=== PATIENT | male | born 1960 | race Caucasian/White ===

== ENCOUNTER 2018-01-15 22:16 | Inpatient (IN) | payer OTHER ==
[2018-01-15] MEDS: LORAZEPAM 2 MG INJ IV (22:39)
[2018-01-15] MEDS: FUROSEMIDE 20 MG INJ IV (22:40)
[2018-01-15] MEDS: morphine 4 MG/ML VIAL IV (22:40)
[2018-01-15] MEDS: ONDANSETRON 4 MG INJ IV (22:40)
[2018-01-15] MEDS: ASPIRIN 325 MG TAB PO (22:41)
[2018-01-15] MEDS: NITROGLYCERIN 50 MG/D5W (PMX) 250 ML IV (22:42)
[2018-01-15 22:46] LABS: ADD MAN DIFF? NO
[2018-01-15 22:48] LABS: BASOPHIL # 0.1 10^3/ul (0.0-0.1); BASOPHILS % 0.6 % (0.0-2.0); EOSINOPHILS # 0.4 10^3/ul (0.0-0.5); EOSINOPHILS % 2.3 % (0.0-7.0); HEMATOCRIT 32.6 % (42.0-52.0); LYMPHOCYTES # 4.8 10^3/ul (0.8-2.9); MEAN CORPUSCULAR HEMOGLOBIN 29.2 pg (29.0-33.0); MEAN CORPUSCULAR HGB CONC 30.7 g/dl (32.0-37.0); MEAN PLATELET VOLUME 9.7 fl (7.4-10.4); MONOCYTE # 1.3 10^3/ul (0.3-0.9); MONOCYTES % 7.2 % (0.0-11.0); NEUTROPHIL # 11.1 10^3/ul (1.6-7.5); NEUTROPHILS % 62.4 % (39.0-77.0); PLATELET COUNT 391 10^3/UL (140-415); RED BLOOD COUNT 3.43 10^6/ul (4.70-6.10); RED CELL DISTRIBUTION WIDTH 13.6 % (11.5-14.5)
[2018-01-15 22:48] LABS: WHITE BLOOD COUNT 17.7 10^3/ul (4.8-10.8)
[2018-01-15 23:06] LABS: ALANINE AMINOTRANSFERASE 32 IU/L (13-69); ALBUMIN 3.9 g/dl (3.3-4.9); ALBUMIN/GLOBULIN RATIO 1.34; ALKALINE PHOSPHATASE 75 IU/L (42-121); ANION GAP 23 (8-16); ASPARTATE AMINO TRANSFERASE 25 IU/L (15-46); BILIRUBIN,INDIRECT 0.2 mg/dl (0-1.1); BILIRUBIN,TOTAL 0.2 mg/dl (0.2-1.3); BLOOD UREA NITROGEN 31 mg/dl (7-20); CALCIUM 8.4 mg/dl (8.4-10.2); CARBON DIOXIDE 16 mmol/L (21-31); CHLORIDE 108 mmol/L (97-110); CREATININE 1.67 mg/dl (0.61-1.24); GLUCOSE 284 mg/dl (70-220); SODIUM 142 mmol/L (135-144); TOTAL PROTEIN 6.8 g/dl (6.1-8.1)
[2018-01-15 23:07] LABS: INR 1.04; PROTIME 13.7 Sec (11.9-14.9); PT RATIO 1.1
[2018-01-15 23:08] LABS: PARTIAL THROMBOPLASTIN TIME 32.8 Sec (25.0-35.0)
[2018-01-15 23:18] LABS: B-TYPE NATRIURETIC PEPTIDE 16200 PG/ML (0-125)
[2018-01-15 23:22] LABS: TROPONIN-I 0.407 ng/ml (0.000-0.120)
[2018-01-16] MEDS: LORAZEPAM 2 MG INJ IV (00:19)
[2018-01-16] MEDS ORDERED: ONDANSETRON 4 MG INJ IV (00:30)
[2018-01-16] MEDS ORDERED: NITROGLYCERIN (SL) 0.4 MG TAB SL (00:30)
[2018-01-16] MEDS ORDERED: NACL 0.9% 3 ML SYG IV (00:30)
[2018-01-16] MEDS ORDERED: ACETAMINOPHEN 325 MG TAB PO (00:30)
[2018-01-16 01:34] LABS: AADO2 Arterial 123.9 mmHg (7.0-24.0); Arterial Base Excess -6.4 mmol/L (-3.0-3); Arterial COHb 0.4 % (0.0-3.0); Arterial Fraction of Oxyhgb 88.6 % (93.0-99.0); Arterial HCO3 19.8 mmol/L (22.0-26.0); Arterial MetHb 0.1 % (0.0-1.5); Arterial Total Hemglobin 10.7 g/dl (12.0-18.0); Arterial pCO2 42.1 mmhg (35-45); MODE NASAL CANNULA; Site Left Radial
[2018-01-16] MEDS: ALBUTEROL/IPRATROPIUM (NEB) 3 ML AMP HHN ×2 (03:56→19:53)
[2018-01-16] MEDS: BUMETANIDE 1 MG INJ IV (04:09)
[2018-01-16 05:38] LABS: AADO2 Arterial 122.2 mmHg (7.0-24.0); Allen Test ACCEPTAB; Arterial Base Excess -5.2 mmol/L (-3.0-3); Arterial Blood Gas Oxygen Sat 97.7 mmHG (95.0-98.0); Arterial COHb 0.1 % (0.0-3.0); Arterial Fraction of Oxyhgb 97.4 % (93.0-99.0); Arterial HCO3 20.3 mmol/L (22.0-26.0); Arterial MetHb 0.2 % (0.0-1.5); Arterial Total Hemglobin 10.5 g/dl (12.0-18.0); Arterial pCO2 39.6 mmhg (35-45); Blood Gas IEPAP 18/5; MODE MASK - BIPAP; Site Left Radial
[2018-01-16 07:41] LABS: ADD MAN DIFF? NO
[2018-01-16 07:54] LABS: WHITE BLOOD COUNT 13.7 10^3/ul (4.8-10.8)
[2018-01-16 07:54] LABS: BASOPHIL # 0.1 10^3/ul (0.0-0.1); BASOPHILS % 0.4 % (0.0-2.0); EOSINOPHILS # 0.1 10^3/ul (0.0-0.5); EOSINOPHILS % 0.7 % (0.0-7.0); HEMATOCRIT 31.8 % (42.0-52.0); HEMOGLOBIN 9.7 g/dl (14.0-18.0); LYMPHOCYTES # 2.1 10^3/ul (0.8-2.9); LYMPHOCYTES % 15.1 % (15.0-51.0); MEAN CORPUSCULAR HEMOGLOBIN 28.6 pg (29.0-33.0); MEAN CORPUSCULAR HGB CONC 30.5 g/dl (32.0-37.0); MEAN CORPUSCULAR VOLUME 93.8 fl (82.0-101.0); MEAN PLATELET VOLUME 9.6 fl (7.4-10.4); MONOCYTE # 1.1 10^3/ul (0.3-0.9); MONOCYTES % 7.7 % (0.0-11.0); NEUTROPHIL # 10.4 10^3/ul (1.6-7.5); NEUTROPHILS % 75.7 % (39.0-77.0); PLATELET COUNT 334 10^3/UL (140-415); RED BLOOD COUNT 3.39 10^6/ul (4.70-6.10); RED CELL DISTRIBUTION WIDTH 13.6 % (11.5-14.5)
[2018-01-16 08:15] LABS: CREATINE KINASE 94 IU/L (23-200)
[2018-01-16 08:23] LABS: CK INDEX 3.6
[2018-01-16] MEDS: HALOPERIDOL 5 MG INJ IM (08:23)
[2018-01-16] MEDS: DIPHENHYDRAMINE 50 MG INJ IV (08:23)
[2018-01-16 08:25] LABS: CK-MB 3.42 ng/ml (0.0-2.4); TROPONIN-I 0.456 ng/ml (0.000-0.120)
[2018-01-16] MEDS: FUROSEMIDE 20 MG INJ IV ×2 (08:30→21:47)
[2018-01-16] MEDS: METOPROLOL 25 MG TAB PO (08:31)
[2018-01-16] MEDS: ASPIRIN (EC) 81 MG TAB PO (08:31)
[2018-01-16 08:34] LABS: HEMOGLOBIN A1C 6.6 % (0-5.9)
[2018-01-16 08:38] LABS: ALANINE AMINOTRANSFERASE 36 IU/L (13-69); ALBUMIN 3.4 g/dl (3.3-4.9); ALBUMIN/GLOBULIN RATIO 1.25; ALKALINE PHOSPHATASE 60 IU/L (42-121); ANION GAP 18 (8-16); ASPARTATE AMINO TRANSFERASE 26 IU/L (15-46); BILIRUBIN,INDIRECT 0.2 mg/dl (0-1.1); BILIRUBIN,TOTAL 0.2 mg/dl (0.2-1.3); BLOOD UREA NITROGEN 37 mg/dl (7-20); CALCIUM 8.1 mg/dl (8.4-10.2); CARBON DIOXIDE 21 mmol/L (21-31); CHLORIDE 109 mmol/L (97-110); CHOL/HDL RATIO 3.7 RATIO; CHOLESTEROL 112 mg/dl (100-200); CREATININE 1.82 mg/dl (0.61-1.24); GLUCOSE 160 mg/dl (70-220); HDL CHOLESTEROL 30 mg/dl (28-71); LDL CHOLESTEROL,CALCULATED 55 mg/dl; MAGNESIUM 1.4 mg/dl (1.7-2.5); POTASSIUM 5.9 mmol/L (3.5-5.1); SODIUM 142 mmol/L (135-144); TOTAL PROTEIN 6.1 g/dl (6.1-8.1); TRIGLYCERIDES 137 mg/dl (0-149)
[2018-01-16] MEDS: ENOXAPARIN 100 MG/ML SYG SC (08:52)
[2018-01-16] MEDS ORDERED: HEPARIN 5,000 UNIT/0.5 ML VIAL SC (09:00)
[2018-01-16 09:08] LABS: THYROID STIMULATING HORMONE 0.892 MIU/L (0.465-4.680)
[2018-01-16] MEDS: MAGNESIUM SULFATE 1 GM/D5W 100 ML IVPB (11:39)
[2018-01-16 12:45] LABS: SODIUM,URINE RANDOM 121 mmol/L (30-90)
[2018-01-16 12:45] LABS: CREATININE,URINE RANDOM 38.67 mg/dl (20-370)
[2018-01-16 12:55] LABS: CREATINE KINASE 116 IU/L (23-200)
[2018-01-16 13:07] LABS: CK INDEX 2.8
[2018-01-16 13:09] LABS: TROPONIN-I 0.424 ng/ml (0.000-0.120)
[2018-01-16 15:52] LABS: ANION GAP 16 (8-16); BLOOD UREA NITROGEN 36 mg/dl (7-20); CALCIUM 8.4 mg/dl (8.4-10.2); CARBON DIOXIDE 22 mmol/L (21-31); CHLORIDE 109 mmol/L (97-110); CREATININE 1.83 mg/dl (0.61-1.24); GLUCOSE 164 mg/dl (70-220); POTASSIUM 5.2 mmol/L (3.5-5.1); SODIUM 142 mmol/L (135-144)
[2018-01-16] MEDS: INSULIN ASPART [NOVOLOG] 3 ML PEN SC ×2 (17:57→22:04)
[2018-01-16] MEDS ORDERED: GLUCOSE GEL 15 GRAM TUBE BUCCAL (18:00)
[2018-01-16] MEDS ORDERED: GLUCAGON 1 MG INJ IM (18:00)
[2018-01-16] MEDS ORDERED: GLUCOSE GEL 15 GRAM TUBE PO ×2 (18:00)
[2018-01-16] MEDS ORDERED: DEXTROSE 50% 50 ML SYRINGE IV ×2 (18:00)
[2018-01-16] MEDS ORDERED: hydrALAzine 20 MG INJ IV (20:00)
[2018-01-16] MEDS ORDERED: INSULIN GLARGINE HUM REC ANLOG SC (21:00)
[2018-01-16] MEDS ORDERED: [UNRECOGNIZED DRUG - OTHER] SC (21:00)
[2018-01-16] MEDS: ISOSORBIDE DINITRATE 10 MG TAB PO (21:48)
[2018-01-16] MEDS: INSULIN GLARGINE [LANtus] 3 ML PEN SC (23:46)
[2018-01-17] MEDS: ALBUTEROL/IPRATROPIUM (NEB) 3 ML AMP HHN (00:41)
[2018-01-17] MEDS: ACCU-CHEK XX (02:00)
[2018-01-17] MEDS: ASPIRIN (EC) 81 MG TAB PO (07:52)
[2018-01-17] MEDS: FUROSEMIDE 20 MG INJ IV ×2 (07:52→20:49)
[2018-01-17] MEDS: ISOSORBIDE DINITRATE 10 MG TAB PO ×3 (07:53→20:44)
[2018-01-17] MEDS: INSULIN ASPART [NOVOLOG] 3 ML PEN SC ×4 (08:00→20:55)
[2018-01-17 09:37] LABS: ADD MAN DIFF? NO
[2018-01-17 09:40] LABS: WHITE BLOOD COUNT 12.5 10^3/ul (4.8-10.8)
[2018-01-17 09:40] LABS: BASOPHIL # 0.1 10^3/ul (0.0-0.1); BASOPHILS % 0.6 % (0.0-2.0); EOSINOPHILS # 0.4 10^3/ul (0.0-0.5); EOSINOPHILS % 3.1 % (0.0-7.0); HEMATOCRIT 31.8 % (42.0-52.0); HEMOGLOBIN 9.9 g/dl (14.0-18.0); LYMPHOCYTES # 2.2 10^3/ul (0.8-2.9); MEAN CORPUSCULAR HEMOGLOBIN 28.9 pg (29.0-33.0); MEAN CORPUSCULAR HGB CONC 31.1 g/dl (32.0-37.0); MEAN PLATELET VOLUME 9.7 fl (7.4-10.4); MONOCYTE # 1.1 10^3/ul (0.3-0.9); MONOCYTES % 8.9 % (0.0-11.0); NEUTROPHIL # 8.6 10^3/ul (1.6-7.5); NEUTROPHILS % 68.8 % (39.0-77.0); PLATELET COUNT 337 10^3/UL (140-415); RED BLOOD COUNT 3.42 10^6/ul (4.70-6.10); RED CELL DISTRIBUTION WIDTH 13.6 % (11.5-14.5)
[2018-01-17 10:26] LABS: ANION GAP 12 (8-16); BLOOD UREA NITROGEN 36 mg/dl (7-20); CALCIUM 8.4 mg/dl (8.4-10.2); CARBON DIOXIDE 25 mmol/L (21-31); CHLORIDE 110 mmol/L (97-110); CREATININE 1.72 mg/dl (0.61-1.24); GLUCOSE 199 mg/dl (70-220); MAGNESIUM 1.5 mg/dl (1.7-2.5); PHOSPHORUS 3.8 mg/dl (2.5-4.9); POTASSIUM 5.9 mmol/L (3.5-5.1); SODIUM 141 mmol/L (135-144)
[2018-01-17] MEDS: NA POLYST SULFON 15 GM/60 ML BTL PO (17:39)
[2018-01-17] MEDS: INSULIN GLARGINE [LANtus] 3 ML PEN SC (21:28)
[2018-01-17] MEDS: ZOLPIDEM 5 MG TAB PO (23:28)
[2018-01-18] MEDS: MAGNESIUM SULFATE 2 GM/50 ML 50 ML IVPB (00:09)
[2018-01-18] MEDS: ACCU-CHEK XX (02:00)
[2018-01-18] MEDS: INSULIN ASPART [NOVOLOG] 3 ML PEN SC ×4 (07:54→20:53)
[2018-01-18] MEDS: ASPIRIN (EC) 81 MG TAB PO (08:24)
[2018-01-18] MEDS: FUROSEMIDE 20 MG INJ IV ×2 (08:24→20:47)
[2018-01-18] MEDS: ISOSORBIDE DINITRATE 10 MG TAB PO ×3 (08:25→20:47)
[2018-01-18 08:48] LABS: ADD MAN DIFF? NO
[2018-01-18 09:01] LABS: WHITE BLOOD COUNT 12.5 10^3/ul (4.8-10.8)
[2018-01-18 09:01] LABS: BASOPHIL # 0.1 10^3/ul (0.0-0.1); BASOPHILS % 0.8 % (0.0-2.0); EOSINOPHILS # 0.5 10^3/ul (0.0-0.5); EOSINOPHILS % 4.3 % (0.0-7.0); HEMATOCRIT 33.2 % (42.0-52.0); HEMOGLOBIN 10.3 g/dl (14.0-18.0); LYMPHOCYTES # 2.5 10^3/ul (0.8-2.9); LYMPHOCYTES % 19.8 % (15.0-51.0); MEAN CORPUSCULAR HEMOGLOBIN 28.8 pg (29.0-33.0); MEAN CORPUSCULAR VOLUME 92.7 fl (82.0-101.0); MEAN PLATELET VOLUME 9.8 fl (7.4-10.4); MONOCYTE # 1.1 10^3/ul (0.3-0.9); NEUTROPHIL # 8.2 10^3/ul (1.6-7.5); NEUTROPHILS % 65.7 % (39.0-77.0); PLATELET COUNT 344 10^3/UL (140-415); RED BLOOD COUNT 3.58 10^6/ul (4.70-6.10); RED CELL DISTRIBUTION WIDTH 13.7 % (11.5-14.5)
[2018-01-18 09:24] LABS: ANION GAP 14 (8-16); BLOOD UREA NITROGEN 30 mg/dl (7-20); CALCIUM 8.5 mg/dl (8.4-10.2); CARBON DIOXIDE 26 mmol/L (21-31); CHLORIDE 110 mmol/L (97-110); GLUCOSE 157 mg/dl (70-220); MAGNESIUM 1.8 mg/dl (1.7-2.5); PHOSPHORUS 4.1 mg/dl (2.5-4.9); POTASSIUM 5.5 mmol/L (3.5-5.1); SODIUM 144 mmol/L (135-144)
[2018-01-18] MEDS: INSULIN GLARGINE [LANtus] 3 ML PEN SC (20:53)
[2018-01-19] MEDS: ACCU-CHEK XX (01:56)
[2018-01-19] MEDS: FUROSEMIDE 40 MG TAB PO ×2 (05:39→17:28)
[2018-01-19] MEDS: INSULIN ASPART [NOVOLOG] 3 ML PEN SC ×4 (07:57→20:45)
[2018-01-19 08:03] LABS: ANION GAP 15 (8-16); BLOOD UREA NITROGEN 29 mg/dl (7-20); CALCIUM 8.6 mg/dl (8.4-10.2); CARBON DIOXIDE 28 mmol/L (21-31); CHLORIDE 106 mmol/L (97-110); CREATININE 1.39 mg/dl (0.61-1.24); GLUCOSE 162 mg/dl (70-220); PHOSPHORUS 4.4 mg/dl (2.5-4.9); POTASSIUM 5.1 mmol/L (3.5-5.1); SODIUM 144 mmol/L (135-144)
[2018-01-19 08:19] LABS: MAGNESIUM 1.7 mg/dl (1.7-2.5)
[2018-01-19] MEDS: ASPIRIN (EC) 81 MG TAB PO (08:33)
[2018-01-19] MEDS: ISOSORBIDE DINITRATE 10 MG TAB PO ×3 (08:36→20:38)
[2018-01-19 15:42] LABS: CREATININE, RANDOM URINE 46 mg/dL (20-370); MICROALBUMIN 69.8 mg/dL; MICROALBUMIN/CREATININE RATIO 1517 (<30)
[2018-01-19] MEDS: INSULIN GLARGINE [LANtus] 3 ML PEN SC (20:46)
[2018-01-20] MEDS: ACCU-CHEK XX (02:00)
[2018-01-20] MEDS: FUROSEMIDE 40 MG TAB PO (05:30)
[2018-01-20] MEDS: INSULIN ASPART [NOVOLOG] 3 ML PEN SC ×2 (07:36→11:36)
[2018-01-20] MEDS: ASPIRIN (EC) 81 MG TAB PO (08:17)
[2018-01-20] MEDS: ISOSORBIDE DINITRATE 10 MG TAB PO ×2 (08:18→13:19)
[2018-01-20 08:32] LABS: ANION GAP 14 (8-16); BLOOD UREA NITROGEN 30 mg/dl (7-20); CALCIUM 9.1 mg/dl (8.4-10.2); CARBON DIOXIDE 28 mmol/L (21-31); CHLORIDE 105 mmol/L (97-110); CREATININE 1.43 mg/dl (0.61-1.24); GLUCOSE 133 mg/dl (70-220); MAGNESIUM 1.5 mg/dl (1.7-2.5); PHOSPHORUS 4.8 mg/dl (2.5-4.9); POTASSIUM 4.9 mmol/L (3.5-5.1); SODIUM 142 mmol/L (135-144)
[2018-01-20] MEDS: SPIRONOLACTONE 25 MG TAB PO (13:18)
[2018-01-20 13:20] LABS: IRON 30 ug/dl (35-150)
[2018-01-20 13:29] LABS: % IRON SATURATION 10 % SAT (22-52); TOTAL IRON BINDING CAPACITY 294 ug/dl (241-421)
[2018-01-20 21:51] LABS: HEPATITIS C VIRAL ANTIBODY NEGATIVE (NEGATIVE)
== END 2018-01-20 15:30 | disposition home or self-care (01) | DRG 280 ==
LOC: TEL 01-16 00:39 → E/R 22:16 → TEL 23:56
DX: I13.0 Hypertensive heart and chronic kidney disease with heart failure and stage 1 through stage 4 chronic kidney disease, or unspecified chronic kidney disease (principal); I50.21 Acute systolic (congestive) heart failure; I21.A1 Myocardial infarction type 2; J96.01 Acute respiratory failure with hypoxia; N17.9 Acute kidney failure, unspecified; E87.2 Acidosis; I16.1 Hypertensive emergency; N18.9 Chronic kidney disease, unspecified; E11.22 Type 2 diabetes mellitus with diabetic chronic kidney disease; E87.5 Hyperkalemia
CPT/HCPCS: 36415; 36600; 71045; 71250; 76775; 80048; 80053; 80061; 81003; 82043; 82550; 82553; 82728; 82803; 82962; 83036; 83540; 83735; 83880; 84100; 84155; 84300; 84443; 84484; 85025; 85610; 85730; 86803; 93005; 93306; 94640; 94660; 94664; 96365; 96375; 99291-25

== ENCOUNTER 2018-03-14 12:25 | Emergency (ER) | payer OTHER ==
[2018-03-14 15:14] LABS: ADD MAN DIFF? NO
[2018-03-14 15:20] LABS: WHITE BLOOD COUNT 12.6 10^3/ul (4.8-10.8)
[2018-03-14 15:20] LABS: BASOPHIL # 0.1 10^3/ul (0.0-0.1); BASOPHILS % 0.6 % (0.0-2.0); EOSINOPHILS # 0.7 10^3/ul (0.0-0.5); EOSINOPHILS % 5.5 % (0.0-7.0); HEMATOCRIT 36.2 % (42.0-52.0); HEMOGLOBIN 11.3 g/dl (14.0-18.0); LYMPHOCYTES # 2.9 10^3/ul (0.8-2.9); LYMPHOCYTES % 22.9 % (15.0-51.0); MEAN CORPUSCULAR HEMOGLOBIN 27.6 pg (29.0-33.0); MEAN CORPUSCULAR HGB CONC 31.2 g/dl (32.0-37.0); MEAN CORPUSCULAR VOLUME 88.5 fl (82.0-101.0); MONOCYTES % 7.8 % (0.0-11.0); PLATELET COUNT 308 10^3/UL (140-415); RED BLOOD COUNT 4.09 10^6/ul (4.70-6.10); RED CELL DISTRIBUTION WIDTH 13.5 % (11.5-14.5)
[2018-03-14 15:37] LABS: ALANINE AMINOTRANSFERASE 18 IU/L (13-69); ALBUMIN 3.8 g/dl (3.3-4.9); ALBUMIN/GLOBULIN RATIO 0.97; ALKALINE PHOSPHATASE 67 IU/L (42-121); ANION GAP 15 (8-16); ASPARTATE AMINO TRANSFERASE 18 IU/L (15-46); BILIRUBIN,INDIRECT 0.2 mg/dl (0-1.1); BILIRUBIN,TOTAL 0.2 mg/dl (0.2-1.3); BLOOD UREA NITROGEN 39 mg/dl (7-20); CARBON DIOXIDE 25 mmol/L (21-31); CHLORIDE 107 mmol/L (97-110); CREATINE KINASE 63 IU/L (23-200); CREATININE 1.79 mg/dl (0.61-1.24); GLUCOSE 115 mg/dl (70-220); POTASSIUM 4.9 mmol/L (3.5-5.1); SODIUM 142 mmol/L (135-144); TOTAL PROTEIN 7.7 g/dl (6.1-8.1)
[2018-03-14 15:39] LABS: INR 1.04; PROTIME 13.7 Sec (11.9-14.9); PT RATIO 1.1
[2018-03-14 15:40] LABS: PARTIAL THROMBOPLASTIN TIME 28.9 Sec (25.0-35.0)
[2018-03-14 15:50] LABS: B-TYPE NATRIURETIC PEPTIDE 14300 PG/ML (0-125); CK INDEX 3.4; CK-MB 2.12 ng/ml (0.0-2.4); TROPONIN-I < 0.012 ng/ml (0.000-0.120)
== END 2018-03-14 16:34 | disposition home or self-care (01) ==
LOC: E/R 12:25
DX: I50.9 Heart failure, unspecified (principal); I10 Essential (primary) hypertension; E11.9 Type 2 diabetes mellitus without complications; Z00.00 Encounter for general adult medical examination without abnormal findings; Z79.82 Long term (current) use of aspirin; Z98.61 Coronary angioplasty status
CPT/HCPCS: 36415; 71045; 80053; 82550; 82553; 83880; 84484; 85025; 85610; 85730; 93005; 99285-25

== ENCOUNTER 2018-12-22 14:02 | Inpatient (IN) | payer OTHER ==
[2018-12-22 15:47] LABS: ADD MAN DIFF? NO
[2018-12-22 15:49] LABS: WHITE BLOOD COUNT 13.2 10^3/ul (4.8-10.8)
[2018-12-22 15:49] LABS: BASOPHIL # 0.1 10^3/ul (0.0-0.1); BASOPHILS % 0.7 % (0.0-2.0); EOSINOPHILS # 0.5 10^3/ul (0.0-0.5); EOSINOPHILS % 3.5 % (0.0-7.0); HEMATOCRIT 40.2 % (42.0-52.0); HEMOGLOBIN 12.3 g/dl (14.0-18.0); LYMPHOCYTES # 2.9 10^3/ul (0.8-2.9); LYMPHOCYTES % 21.9 % (15.0-51.0); MEAN CORPUSCULAR HGB CONC 30.6 g/dl (32.0-37.0); MEAN CORPUSCULAR VOLUME 91.4 fl (82.0-101.0); MEAN PLATELET VOLUME 9.4 fl (7.4-10.4); MONOCYTES % 7.8 % (0.0-11.0); NEUTROPHIL # 8.7 10^3/ul (1.6-7.5); NEUTROPHILS % 65.8 % (39.0-77.0); PLATELET COUNT 299 10^3/UL (140-415); RED CELL DISTRIBUTION WIDTH 13.2 % (11.5-14.5)
[2018-12-22 16:10] LABS: INR 0.92; PROTIME 12.5 Sec (11.9-14.9)
[2018-12-22 16:11] LABS: PARTIAL THROMBOPLASTIN TIME 29.3 Sec (23.0-35.0)
[2018-12-22 16:24] LABS: ALANINE AMINOTRANSFERASE 22 IU/L (13-69); ALBUMIN 3.9 g/dl (3.3-4.9); ALBUMIN/GLOBULIN RATIO 1.05; ALKALINE PHOSPHATASE 81 IU/L (42-121); ANION GAP 7 (5-13); ASPARTATE AMINO TRANSFERASE 48 IU/L (15-46); BILIRUBIN,INDIRECT 0.4 mg/dl (0-1.1); BILIRUBIN,TOTAL 0.4 mg/dl (0.2-1.3); BLOOD UREA NITROGEN 35 mg/dl (7-20); CALCIUM 9.1 mg/dl (8.4-10.2); CARBON DIOXIDE 29 mmol/L (21-31); CHLORIDE 106 mmol/L (97-110); CREATININE 1.88 mg/dl (0.61-1.24); Estimated GFR 37 mL/min (>60); GLUCOSE 178 mg/dl (70-220); SODIUM 142 mmol/L (135-144); TOTAL PROTEIN 7.6 g/dl (6.1-8.1)
[2018-12-22 16:39] LABS: POTASSIUM 6.3 mmol/L (3.5-5.1)
[2018-12-22] MEDS: CA CHLORIDE 10% 10 ML SYRINGE IV (17:22)
[2018-12-22] MEDS: NA BICARBONATE 8.4% 50 ML SYG IV (17:24)
[2018-12-22] MEDS: FUROSEMIDE 40 MG INJ IV (17:24)
[2018-12-22] MEDS: SODIUM POLYSTYRENE 15 GM KIT (POWDER + SORBITOL) PO (17:25)
[2018-12-22 17:31] LABS: TROPONIN-I 0.171 ng/ml (0.000-0.120)
[2018-12-22 17:55] LABS: B-TYPE NATRIURETIC PEPTIDE 11400 PG/ML (0-125)
[2018-12-22] MEDS: ASPIRIN 325 MG TAB PO (17:59)
[2018-12-22] MEDS ORDERED: ACETAMINOPHEN 325 MG TAB PO ×2 (18:00→20:30)
[2018-12-22] MEDS ORDERED: ONDANSETRON 4 MG INJ IV ×2 (18:00→20:30)
[2018-12-22] MEDS ORDERED: NACL 0.9% 3 ML SYG IV (20:30)
[2018-12-22] MEDS ORDERED: MAGNESIUM HYDROXIDE 30ML CUP PO (20:30)
[2018-12-22] MEDS ORDERED: NITROGLYCERIN (SL) 0.4 MG TAB SL (20:30)
[2018-12-22] MEDS ORDERED: HYDROCODONE/APAP (5/325) TAB PO (20:30)
[2018-12-22] MEDS ORDERED: ALBUTEROL/IPRATROPIUM (NEB) 3 ML AMP HHN (20:30)
[2018-12-22] MEDS ORDERED: hydrALAzine 20 MG INJ IV (20:30)
[2018-12-22] MEDS ORDERED: morphine 2 MG INJ IV (20:30)
[2018-12-22] MEDS ORDERED: DOCUSATE SODIUM 100 MG CAP PO (20:30)
[2018-12-22] MEDS ORDERED: LORAZEPAM 2 MG INJ IV (20:30)
[2018-12-22] MEDS ORDERED: INSULIN GLARGINE [LANtus] 3 ML PEN SC (21:00)
[2018-12-22] MEDS ORDERED: DEXTROSE 50% 50 ML SYRINGE IV ×2 (21:00)
[2018-12-22] MEDS ORDERED: GLUCOSE GEL 15 GRAM TUBE PO ×2 (21:00)
[2018-12-22] MEDS ORDERED: GLUCAGON 1 MG INJ IM (21:00)
[2018-12-22 21:21] LABS: FREE T4 (FREE THYROXINE) 1.19 ng/dl (0.64-1.79)
[2018-12-22 21:31] LABS: CREATINE KINASE 98 IU/L (23-200)
[2018-12-22 21:35] LABS: INR 0.94; PROTIME 12.7 Sec (11.9-14.9)
[2018-12-22 21:36] LABS: PARTIAL THROMBOPLASTIN TIME 31.7 Sec (23.0-35.0)
[2018-12-22 21:44] LABS: CK INDEX 2.7
[2018-12-22 21:45] LABS: CK-MB 2.65 ng/ml (0.0-2.4); TROPONIN-I 0.152 ng/ml (0.000-0.120)
[2018-12-22] MEDS: ISOSORBIDE DINITRATE 10 MG TAB PO (21:55)
[2018-12-22] MEDS: FAMOTIDINE 20 MG TAB PO (21:56)
[2018-12-22] MEDS: ENOXAPARIN 100 MG/ML SYG SC (22:24)
[2018-12-22] MEDS ORDERED: INSULIN GLARGINE [LANTus] (100 UNITS/ML) SYG SC ×2 (22:52→22:54)
[2018-12-22] MEDS: INSULIN ASPART [NOVOLOG] 3 ML PEN SC (23:12)
[2018-12-22] MEDS: INSULIN GLARGINE [LANTus] (100 UNITS/ML) SYG SC (23:27)
[2018-12-23] MEDS: ALBUTEROL 0.5% (NEB) 2.5 MG/0.5 ML AMP INH (00:09)
[2018-12-23] MEDS: INSULIN ASPART [NOVOLOG] 3 ML PEN SC ×4 (01:47→12:45)
[2018-12-23] MEDS: ACCU-CHEK XX (01:47)
[2018-12-23 02:11] LABS: ADD MAN DIFF? NO
[2018-12-23 02:14] LABS: WHITE BLOOD COUNT 12.4 10^3/ul (4.8-10.8)
[2018-12-23 02:14] LABS: BASOPHIL # 0.1 10^3/ul (0.0-0.1); BASOPHILS % 0.6 % (0.0-2.0); EOSINOPHILS # 0.5 10^3/ul (0.0-0.5); EOSINOPHILS % 3.9 % (0.0-7.0); HEMATOCRIT 33.6 % (42.0-52.0); HEMOGLOBIN 10.6 g/dl (14.0-18.0); LYMPHOCYTES # 3.4 10^3/ul (0.8-2.9); LYMPHOCYTES % 27.6 % (15.0-51.0); MEAN CORPUSCULAR HEMOGLOBIN 28.4 pg (29.0-33.0); MEAN CORPUSCULAR HGB CONC 31.5 g/dl (32.0-37.0); MEAN CORPUSCULAR VOLUME 90.1 fl (82.0-101.0); MEAN PLATELET VOLUME 9.6 fl (7.4-10.4); MONOCYTE # 1.1 10^3/ul (0.3-0.9); MONOCYTES % 8.8 % (0.0-11.0); NEUTROPHIL # 7.3 10^3/ul (1.6-7.5); NEUTROPHILS % 58.8 % (39.0-77.0); PLATELET COUNT 263 10^3/UL (140-415); RED BLOOD COUNT 3.73 10^6/ul (4.70-6.10); RED CELL DISTRIBUTION WIDTH 13.2 % (11.5-14.5)
[2018-12-23 02:33] LABS: HEMOGLOBIN A1C 6.7 % (0-5.9)
[2018-12-23 02:35] LABS: CREATINE KINASE 77 IU/L (23-200)
[2018-12-23 02:40] LABS: CHOLESTEROL 155 mg/dl (100-200)
[2018-12-23 02:40] LABS: CHOL/HDL RATIO 4.6 RATIO; HDL CHOLESTEROL 33 mg/dl (28-71); LDL CHOLESTEROL,CALCULATED 86 mg/dl; TRIGLYCERIDES 180 mg/dl (0-149)
[2018-12-23 02:51] LABS: CK INDEX 2.8; CK-MB 2.19 ng/ml (0.0-2.4)
[2018-12-23 02:52] LABS: TROPONIN-I 0.147 ng/ml (0.000-0.120)
[2018-12-23 03:24] LABS: ANION GAP 4 (5-13); BLOOD UREA NITROGEN 35 mg/dl (7-20); CALCIUM 8.7 mg/dl (8.4-10.2); CARBON DIOXIDE 30 mmol/L (21-31); CHLORIDE 104 mmol/L (97-110); CREATININE 1.99 mg/dl (0.61-1.24); Estimated GFR 35 mL/min (>60); GLUCOSE 197 mg/dl (70-220); MAGNESIUM 1.5 mg/dl (1.7-2.5); PHOSPHORUS 4.1 mg/dl (2.5-4.9); POTASSIUM 4.1 mmol/L (3.5-5.1); SODIUM 138 mmol/L (135-144)
[2018-12-23] MEDS: MAGNESIUM SULFATE 2 GM/50 ML 50 ML IVPB (05:04)
[2018-12-23] MEDS: GLUCOSE GEL 15 GRAM TUBE BUCCAL (07:52)
[2018-12-23] MEDS: DEXTROSE 5%-0.45% NACL 1,000 ML IV (08:10)
[2018-12-23] MEDS: ISOSORBIDE DINITRATE 10 MG TAB PO ×2 (08:12→12:49)
[2018-12-23] MEDS: FUROSEMIDE 40 MG INJ IV (08:12)
[2018-12-23] MEDS: ASPIRIN (EC) 325 MG TAB PO (08:12)
[2018-12-23] MEDS: CLOPIDOGREL 75 MG TAB PO (08:12)
[2018-12-23] MEDS: FAMOTIDINE 20 MG TAB PO (08:13)
[2018-12-23] MEDS: CHOLECALCIFEROL 1,000 UNIT TAB PO (08:13)
[2018-12-23] MEDS: FISH OIL 1,000 MG CAP PO (08:13)
[2018-12-23] MEDS: ENOXAPARIN 100 MG/ML SYG SC (08:24)
[2018-12-23] MEDS ORDERED: OMEGA ACID ETHYL ESTERS PO (09:00)
[2018-12-23] MEDS: FLUDROCORTISONE 0.1 MG TAB PO (11:49)
[2018-12-23 13:51] LABS: IRON 62 ug/dl (35-150)
[2018-12-23 14:00] LABS: % IRON SATURATION 22 % SAT (22-52); TOTAL IRON BINDING CAPACITY 284 ug/dl (241-421)
[2018-12-23 22:24] LABS: FERRITIN 62.7 ng/ml (11.1-264.0)
[2018-12-24] MEDS ORDERED: FISH OIL 1,000 MG CAP PO (09:00)
== END 2018-12-23 13:18 | disposition left against medical advice (07) | DRG 641 ==
LOC: E/R 14:02 → 6WM 17:59
PROVIDERS: Hospitalist
DX: E87.5 Hyperkalemia (principal); I13.0 Hypertensive heart and chronic kidney disease with heart failure and stage 1 through stage 4 chronic kidney disease, or unspecified chronic kidney disease; I42.9 Cardiomyopathy, unspecified; I50.22 Chronic systolic (congestive) heart failure; E27.40 Unspecified adrenocortical insufficiency; E11.22 Type 2 diabetes mellitus with diabetic chronic kidney disease; E66.9 Obesity, unspecified; Z68.34 Body mass index [BMI] 34.0-34.9, adult; E83.42 Hypomagnesemia; R79.89 Other specified abnormal findings of blood chemistry; E11.51 Type 2 diabetes mellitus with diabetic peripheral angiopathy without gangrene; N18.3 Chronic kidney disease, stage 3 (moderate)
CPT/HCPCS: 71045; 80048; 80053; 80061; 82550; 82553; 82728; 82962; 83036; 83540; 83735; 83880; 84100; 84439; 84443; 84484; 85025; 85610; 85730; 93005; 93306; 94664; 96374; 96375; 99285-25

== ENCOUNTER 2019-02-01 10:20 | Emergency (ER) | payer OTHER ==
[2019-02-01 10:52] LABS: ADD MAN DIFF? NO
[2019-02-01 10:55] LABS: BASOPHIL # 0.1 10^3/ul (0.0-0.1); BASOPHILS % 0.5 % (0.0-2.0); EOSINOPHILS # 0.3 10^3/ul (0.0-0.5); EOSINOPHILS % 2.2 % (0.0-7.0); HEMATOCRIT 36.6 % (42.0-52.0); HEMOGLOBIN 10.9 g/dl (14.0-18.0); LYMPHOCYTES # 1.7 10^3/ul (0.8-2.9); MEAN CORPUSCULAR HEMOGLOBIN 27.5 pg (29.0-33.0); MEAN CORPUSCULAR HGB CONC 29.8 g/dl (32.0-37.0); MEAN CORPUSCULAR VOLUME 92.2 fl (82.0-101.0); MONOCYTE # 0.8 10^3/ul (0.3-0.9); MONOCYTES % 6.1 % (0.0-11.0); NEUTROPHIL # 10.1 10^3/ul (1.6-7.5); NEUTROPHILS % 77.7 % (39.0-77.0); PLATELET COUNT 313 10^3/UL (140-415); RED BLOOD COUNT 3.97 10^6/ul (4.70-6.10); RED CELL DISTRIBUTION WIDTH 13.9 % (11.5-14.5)
[2019-02-01 11:11] LABS: ANION GAP 7 (5-13); BLOOD UREA NITROGEN 39 mg/dl (7-20); CALCIUM 8.8 mg/dl (8.4-10.2); CARBON DIOXIDE 31 mmol/L (21-31); CHLORIDE 107 mmol/L (97-110); CREATININE 1.75 mg/dl (0.61-1.24); Estimated GFR 40 mL/min (>60); GLUCOSE 158 mg/dl (70-220); POTASSIUM 5.7 mmol/L (3.5-5.1); SODIUM 145 mmol/L (135-144)
[2019-02-01 11:14] LABS: INR 0.96; PROTIME 12.9 Sec (11.9-14.9)
[2019-02-01 11:24] LABS: B-TYPE NATRIURETIC PEPTIDE 14000 PG/ML (0-125)
[2019-02-01 11:27] LABS: TROPONIN-I 0.136 ng/ml (0.000-0.120)
[2019-02-01] MEDS: ASPIRIN 81 MG TAB PO (12:01)
[2019-02-01] MEDS: FUROSEMIDE 40 MG INJ IV (12:01)
[2019-02-01] MEDS: ALBUTEROL 0.5% (NEB) 2.5 MG/0.5 ML AMP INH (12:06)
[2019-02-01] MEDS: IPRATROPIUM (NEB) 0.5 MG/2.5 ML AMP INH (12:06)
[2019-02-01] MEDS: CLOPIDOGREL 75 MG TAB PO (17:40)
[2019-02-01 18:20] LABS: CREATINE KINASE 73 IU/L (23-200)
[2019-02-01 18:30] LABS: CK INDEX 4.1
[2019-02-01] MEDS ORDERED: ATORVASTATIN 10 MG TAB PO (21:00)
== END 2019-02-01 18:16 | disposition home or self-care (01) ==
LOC: E/R 18:16
DX: I13.0 Hypertensive heart and chronic kidney disease with heart failure and stage 1 through stage 4 chronic kidney disease, or unspecified chronic kidney disease (principal); I50.23 Acute on chronic systolic (congestive) heart failure; N18.9 Chronic kidney disease, unspecified; E87.5 Hyperkalemia; D72.829 Elevated white blood cell count, unspecified; D64.9 Anemia, unspecified; I24.8 Other forms of acute ischemic heart disease; R60.0 Localized edema; E11.22 Type 2 diabetes mellitus with diabetic chronic kidney disease; Z79.4 Long term (current) use of insulin; Z79.82 Long term (current) use of aspirin; Z79.01 Long term (current) use of anticoagulants
CPT/HCPCS: 71045; 80048; 82550; 82553; 82962; 83880; 84484; 85025; 85610; 93005; 94644; 96374; 99285-25